=== PATIENT | male | born 1970 | race African-American/Black ===

== ENCOUNTER 2020-08-19 13:28 | Inpatient (IN) | payer OTHER ==
[2020-08-19 14:15] VITALS: BMI 29.9
[2020-08-19] MEDS ORDERED: chlordiazePOXIDE HCL 25 MG CAPSULE ONE (15:17)
[2020-08-19] MEDS: chlordiazePOXIDE HCL 25 MG CAPSULE PO PRN (15:30)
[2020-08-19] MEDS ORDERED: ONDANSETRON *ODT* 4 MG TABLET SL PRN (15:37)
[2020-08-19] MEDS ORDERED: MAGNESIUM HYDROX 2400MG/30ML ORAL SUSPENSION 30 ML CUP PO PRN (15:37)
[2020-08-19] MEDS ORDERED: ACETAMINOPHEN 325 MG TABLET (FP) PO PRN ×2 (15:37)
[2020-08-19] MEDS ORDERED: BISMUTH SUBSALICYLATE 262 MG/15 ML BTL PO PRN (15:37)
[2020-08-19] MEDS ORDERED: MAGNESIUM CITRATE 300 ML BOTTLE PO PRN (15:37)
[2020-08-19] MEDS ORDERED: NICOTINE POLACRILEX 2 MG GUM BUC PRN (15:37)
[2020-08-19] MEDS ORDERED: MAG HYDROX/AL HYDROX/SIMETH 30 ML UNIT-DOSE CUP PO PRN (15:37)
[2020-08-19] MEDS ORDERED: METHOCARBAMOL 500 MG TABLET PO PRN (15:37)
[2020-08-19] MEDS ORDERED: MENTHOL/PHENOL 1 EACH UD MM PRN (15:37)
[2020-08-20] MEDS: NICOTINE 21 MG/24 HOURS TOPICAL PATCH TD SCH ×2 (00:28→10:32)
[2020-08-20] MEDS: chlordiazePOXIDE HCL 25 MG CAPSULE PO SCH ×6 (00:29→22:09)
[2020-08-20] MEDS: hydrOXYzine PAMOATE 25 MG CAPSULE (FP) PO SCH ×7 (00:30→22:09)
[2020-08-20] MEDS: MELATONIN 5 MG TABLETS PO SCH ×2 (00:30→22:09)
[2020-08-20] MEDS: THIAMINE HCL 100 MG TABLET (FP) PO SCH ×2 (00:30→22:09)
[2020-08-20] MEDS: chlordiazePOXIDE HCL 25 MG CAPSULE PO PRN (00:44)
[2020-08-20] MEDS: CLINDAMYCIN HCL 150 MG CAPSULE (FP) PO SCH ×4 (10:32→22:09)
[2020-08-20] MEDS: PRENATAL VITAMINS W/ FOLIC ACID TABLET (FP) PO SCH (10:32)
[2020-08-20 12:14] LABS: HEMATOCRIT 31.6 % (35.4-49); HEMOGLOBIN 10.3 GM/dL (11.7-16.9); MCH 28.7 pg (25.7-33.7); MCHC 32.7 g/dl (32.0-35.9); MEAN CELL VOLUME 87.7 fl (80-96); MEAN PLT VOLUME 8.7 fl (7.5-11.1); PLATELET COUNT 412 K/MM3 (134-434); RBC 3.61 M/mm3 (4.00-5.60); RDW 16.8 % (11.9-15.9); WHITE BLOOD COUNT 5.7 K/mm3 (4.0-10.0)
[2020-08-20 12:29] LABS: ALBUMIN 3.3 g/dl (3.4-5.0); BLOOD UREA NITROGEN 9.8 mg/dL (7-18); CALCIUM 9.4 mg/dL (8.5-10.1)
[2020-08-20 12:33] LABS: CREATININE 0.9 mg/dL (0.55-1.3)
[2020-08-20 12:34] LABS: BILIRUBIN,TOTAL 0.5 mg/dL (0.2-1); TOT PROT 8.7 g/dl (6.4-8.2)
[2020-08-20] MEDS: FLUOCINONIDE 0.05% CREAM (60 GM TUBE) TP SCH ×2 (13:00→22:08)
[2020-08-20] MEDS: IBUPROFEN 400 MG TABLET (FP) PO PRN (18:04)
[2020-08-21] MEDS: hydrOXYzine PAMOATE 25 MG CAPSULE (FP) PO SCH ×2 (05:41→10:03)
[2020-08-21] MEDS: chlordiazePOXIDE HCL 25 MG CAPSULE PO SCH ×4 (05:42→22:03)
[2020-08-21] MEDS: IBUPROFEN 400 MG TABLET (FP) PO PRN (05:44)
[2020-08-21] MEDS: CLINDAMYCIN HCL 150 MG CAPSULE (FP) PO SCH ×4 (10:02→22:03)
[2020-08-21] MEDS: PRENATAL VITAMINS W/ FOLIC ACID TABLET (FP) PO SCH (10:03)
[2020-08-21] MEDS: NICOTINE 21 MG/24 HOURS TOPICAL PATCH TD SCH (10:03)
[2020-08-21] MEDS: FLUOCINONIDE 0.05% CREAM (60 GM TUBE) TP SCH ×2 (10:03→22:03)
[2020-08-21] MEDS: hydrOXYzine PAMOATE 25 MG CAPSULE (FP) PO PRN (17:42)
[2020-08-21] MEDS: IBUPROFEN 600 MG TABLET (FP) PO PRN (20:51)
[2020-08-21] MEDS: THIAMINE HCL 100 MG TABLET (FP) PO SCH (22:03)
[2020-08-21] MEDS: MELATONIN 5 MG TABLETS PO SCH (22:03)
[2020-08-22] MEDS ORDERED: chlordiazePOXIDE HCL 10 MG CAPSULE PO PRN
[2020-08-22] MEDS: chlordiazePOXIDE HCL 10 MG CAPSULE PO SCH ×4 (06:12→22:25)
[2020-08-22] MEDS: IBUPROFEN 600 MG TABLET (FP) PO PRN (09:32)
[2020-08-22] MEDS: PRENATAL VITAMINS W/ FOLIC ACID TABLET (FP) PO SCH (10:18)
[2020-08-22] MEDS: CLINDAMYCIN HCL 150 MG CAPSULE (FP) PO SCH ×4 (10:18→22:25)
[2020-08-22] MEDS ORDERED: IBUPROFEN 400 MG TABLET (FP) PO PRN (11:21)
[2020-08-22] MEDS ORDERED: FUROSEMIDE 40 MG TABLET (FP) PO ONE (11:23)
[2020-08-22] MEDS: NICOTINE 21 MG/24 HOURS TOPICAL PATCH TD SCH (11:23)
[2020-08-22] MEDS: FLUOCINONIDE 0.05% CREAM (60 GM TUBE) TP SCH (11:34)
[2020-08-22] MEDS: NYSTATIN/TRIAMCINOLONE TOPICAL OINTMENT 15 GM TUBE TP SCH ×2 (14:06→22:24)
[2020-08-22] MEDS: hydrOXYzine PAMOATE 25 MG CAPSULE (FP) PO PRN (17:27)
[2020-08-22] MEDS: THIAMINE HCL 100 MG TABLET (FP) PO SCH (22:25)
[2020-08-22] MEDS: MELATONIN 5 MG TABLETS PO SCH (22:25)
[2020-08-23] MEDS ORDERED: chlordiazePOXIDE HCL 10 MG CAPSULE PO SCH (05:00)
[2020-08-23 09:10] VITALS: BP 142/92; PULSE 80; TEMP 97.3
[2020-08-24] MEDS ORDERED: chlordiazePOXIDE HCL 10 MG CAPSULE PO ONE (05:00)
== END 2020-08-23 10:27 | disposition home or self-care (01) | DRG 774 ==
LOC: YASAS 13:28 → Y3N 15:11
PROVIDERS: ADMIT Allergy & Immunology; ATTEND Allergy & Immunology
PROC: HZ2ZZZZ Detoxification Services for Substance Abuse Treatment (ICD-10-PCS; principal; 2020-08-19)
DX: F10.230 Alcohol dependence with withdrawal, uncomplicated (principal); F14.20 Cocaine dependence, uncomplicated; F41.9 Anxiety disorder, unspecified; F32.9 Major depressive disorder, single episode, unspecified; I10 Essential (primary) hypertension; L03.115 Cellulitis of right lower limb; L03.116 Cellulitis of left lower limb; L85.3 Xerosis cutis; R20.0 Anesthesia of skin; R60.0 Localized edema; R19.5 Other fecal abnormalities; R26.2 Difficulty in walking, not elsewhere classified; Z99.89 Dependence on other enabling machines and devices
CPT/HCPCS: 36415; 80053; 82962; 85027; 86780; 93005; 93010; C9803; U0003

== ENCOUNTER 2020-08-19 16:17 | Emergency (ER) | payer OTHER ==
[2020-08-19 16:25] VITALS: BMI 29.9
[2020-08-19] MEDS ORDERED: chlordiazePOXIDE HCL 25 MG CAPSULE PO ONE (17:08)
[2020-08-19] MEDS ORDERED: chlordiazePOXIDE HCL 25 MG CAPSULE ONE (17:20)
[2020-08-19 17:45] LABS: BASO % 0.7 % (0-2.0); EOS % 0.1 % (0-4.5); HEMATOCRIT 29.5 % (35.4-49); HEMOGLOBIN 9.9 GM/dL (11.7-16.9); LYMPH % 16.3 % (8-40); MCH 28.7 pg (25.7-33.7); MCHC 33.6 g/dl (32.0-35.9); MEAN CELL VOLUME 85.4 fl (80-96); MEAN PLT VOLUME 8.5 fl (7.5-11.1); MONO % 23.2 % (3.8-10.2); NEUT % 59.7 % (42.8-82.8); PLATELET COUNT 386 K/MM3 (134-434); RBC 3.45 M/mm3 (4.00-5.60); RDW 16.5 % (11.9-15.9); WHITE BLOOD COUNT 7.5 K/mm3 (4.0-10.0)
[2020-08-19 17:59] LABS: INR 1.32 (0.83-1.09); PROTHROMBIN TIME (PATIENT) 16.1 SEC (9.7-13.0)
[2020-08-19 18:02] LABS: ACTIVATED PTT 36.1 SECONDS (25.2-36.5)
[2020-08-19 18:03] LABS: POTASSIUM 4.2 mmol/L (3.5-5.1)
[2020-08-19 18:05] LABS: ALBUMIN 3.5 g/dl (3.4-5.0); MAGNESIUM 2.1 mg/dL (1.8-2.4)
[2020-08-19 18:10] LABS: BILIRUBIN,TOTAL 0.4 mg/dL (0.2-1)
[2020-08-19] MEDS ORDERED: SODIUM CHLORIDE 1,000 ML IV STA (18:16)
[2020-08-19] MEDS ORDERED: THIAMINE HCL 100 MG TABLET (FP) PO ONE (18:22)
[2020-08-19] MEDS ORDERED: FOLIC ACID 1 MG TABLET (FP) PO ONE (18:22)
[2020-08-19] MEDS ORDERED: FOLIC ACID 1 MG TABLET (FP) ONE (18:26)
[2020-08-19] MEDS ORDERED: THIAMINE HCL 100 MG TABLET (FP) ONE (18:26)
[2020-08-19 18:32] LABS: BLOOD UREA NITROGEN 13.5 mg/dL (7-18)
[2020-08-19] MEDS ORDERED: CLINDAMYCIN IVPB 300 MG in DEXTROSE 5%-WATER - 48 ML IVPB ONE (19:42)
[2020-08-19 20:27] LABS: EPI CELLS 3 /uL (0-25.1); HYALINE CASTS 0 /uL (0-3.1); URINE APPEARANCE CLEAR; URINE BACTERIA 18 /uL (0-1359); URINE BILIRUBIN NEGATIVE (NEGATIVE); URINE COLOR YELLOW; URINE GLUCOSE (UA) NEGATIVE (NEGATIVE); URINE KETONE NEGATIVE (NEGATIVE); URINE LEUK ESTERASE NEGATIVE (NEGATIVE); URINE NITRITE NEGATIVE (NEGATIVE); URINE PROTEIN TRACE (NEGATIVE); URINE RBC 22 /uL (0-23.9); URINE WBC 6 /uL (0-25.8)
[2020-08-19 20:30] LABS: COCAINE, UR NEGATIVE ng/ml (CUTOFF=300)
[2020-08-19 20:31] LABS: OPIATES, URI NEGATIVE ng/ml (CUTOFF=300); PHENCYCLIDINE,URINE NEGATIVE ng/ml (CUTOFF=25)
[2020-08-19 20:31] LABS: N-TERMINAL BNP 18.7 pg/ml (5-125)
[2020-08-19 20:35] LABS: METHADONE, UR NEGATIVE ng/ml (CUTOFF=300); URINE AMPHETAMINES NEGATIVE ng/ml (CUTOFF=500); URINE BARBITURATES NEGATIVE ng/ml (CUTOFF=200)
[2020-08-19 20:43] LABS: URINE BENZODIAZEPINES POSITIVE ng/ml (CUTOFF=200)
[2020-08-19 21:35] VITALS: BP 147/82; PULSE 96; TEMP 99.2
== END 2020-08-19 23:42 | disposition home or self-care (01) ==
LOC: JER 16:17
PROC: 3E0337Z Introduction of Electrolytic and Water Balance Substance into Peripheral Vein, Percutaneous Approach (ICD-10-PCS; principal; 2020-08-19)
PROC: 3E033NZ Introduction of Analgesics, Hypnotics, Sedatives into Peripheral Vein, Percutaneous Approach (ICD-10-PCS; 2020-08-19)
DX: F10.20 Alcohol dependence, uncomplicated (principal); R42 Dizziness and giddiness; L03.115 Cellulitis of right lower limb; L03.116 Cellulitis of left lower limb
CPT/HCPCS: 36415; 71046-TC-FY; 80053; 80307; 81003; 82550; 82553; 83735; 83880; 84484; 85025; 85610; 85730; 93005; 93010; 93970-TC; 99285-25

== ENCOUNTER 2020-11-18 21:00 | Inpatient (IN) | payer OTHER ==
[2020-11-18 21:28] VITALS: BMI 28.6
[2020-11-18] MEDS ORDERED: ONDANSETRON *ODT* 4 MG TABLET SL PRN (21:58)
[2020-11-18] MEDS ORDERED: MAG HYDROX/AL HYDROX/SIMETH 30 ML UNIT-DOSE CUP PO PRN (21:58)
[2020-11-18] MEDS ORDERED: NICOTINE POLACRILEX 2 MG GUM BUC PRN (21:58)
[2020-11-18] MEDS ORDERED: IBUPROFEN 400 MG TABLET (FP) PO PRN (21:58)
[2020-11-18] MEDS ORDERED: MAGNESIUM CITRATE 300 ML BOTTLE PO PRN (21:58)
[2020-11-18] MEDS ORDERED: BISMUTH SUBSALICYLATE 524 MG/30 ML UD PO PRN (21:58)
[2020-11-18] MEDS ORDERED: MAGNESIUM HYDROX 2400MG/30ML ORAL SUSPENSION 30 ML CUP PO PRN (21:58)
[2020-11-18] MEDS ORDERED: chlordiazePOXIDE HCL 25 MG CAPSULE PO PRN (21:59)
[2020-11-18] MEDS ORDERED: METOPROLOL TARTRATE 25 MG TABLET (FP) PO ONE (21:59)
[2020-11-18] MEDS ORDERED: AMMONIUM LACTATE 12% LOTION 225 GM BOTTLE TP PRN (22:00)
[2020-11-18] MEDS ORDERED: MELATONIN 5 MG TABLETS PO SCH (22:00)
[2020-11-18] MEDS: chlordiazePOXIDE HCL 25 MG CAPSULE PO SCH (23:29)
[2020-11-18] MEDS: THIAMINE HCL 100 MG TABLET (FP) PO SCH (23:29)
[2020-11-19] MEDS: chlordiazePOXIDE HCL 25 MG CAPSULE PO SCH ×4 (06:20→22:24)
[2020-11-19] MEDS: PRENATAL VITAMINS W/ FOLIC ACID TABLET (FP) PO SCH (10:26)
[2020-11-19 11:08] LABS: HEMATOCRIT 30.5 % (35.4-49); MCH 28.3 pg (25.7-33.7); MEAN CELL VOLUME 85.7 fl (80-96); PLATELET COUNT 87 K/MM3 (134-434); RBC 3.55 M/mm3 (4.00-5.60); RDW 20.8 % (11.9-15.9); WHITE BLOOD COUNT 3.8 K/mm3 (4.0-10.0)
[2020-11-19 11:16] LABS: CALCIUM 8.9 mg/dL (8.5-10.1)
[2020-11-19 11:17] LABS: ALBUMIN 3.1 g/dl (3.4-5.0); BLOOD UREA NITROGEN 4.8 mg/dL (7-18)
[2020-11-19 11:20] LABS: CREATININE 1.1 mg/dL (0.55-1.3)
[2020-11-19 11:22] LABS: BILIRUBIN,TOTAL 0.4 mg/dL (0.2-1)
[2020-11-19] MEDS: THIAMINE HCL 100 MG TABLET (FP) PO SCH (22:24)
[2020-11-19] MEDS: SUVOREXANT 10 MG TABLET PO PRN (23:10)
[2020-11-20] MEDS: chlordiazePOXIDE HCL 25 MG CAPSULE PO SCH ×4 (05:03→22:32)
[2020-11-20] MEDS ORDERED: guaiFENesin 200 MG/10 ML 10 ML UNIT-DOSE CUPS PO PRN (09:15)
[2020-11-20] MEDS: PRENATAL VITAMINS W/ FOLIC ACID TABLET (FP) PO SCH (10:14)
[2020-11-20] MEDS: ACETAMINOPHEN 325 MG TABLET (FP) PO PRN ×2 (10:14→18:47)
[2020-11-20] MEDS ORDERED: POTASSIUM CHLORIDE ORAL LIQUID 20 MEQ/15 ML PO ONE (11:25)
[2020-11-20] MEDS: FERROUS SO4 325 MG TABLET (FP) PO SCH ×2 (12:33→22:31)
[2020-11-20] MEDS: METHOCARBAMOL 500 MG TABLET PO PRN ×2 (12:35→22:35)
[2020-11-20] MEDS: MENTHOL/PHENOL 1 EACH UD MM PRN ×2 (18:35→22:40)
[2020-11-20] MEDS: SUVOREXANT 10 MG TABLET PO PRN (22:30)
[2020-11-20] MEDS: THIAMINE HCL 100 MG TABLET (FP) PO SCH (22:31)
[2020-11-20] MEDS: POTASSIUM CHLORIDE ORAL LIQUID 20 MEQ/15 ML PO SCH (22:32)
[2020-11-21] MEDS ORDERED: chlordiazePOXIDE HCL 10 MG CAPSULE PO PRN
[2020-11-21] MEDS: chlordiazePOXIDE HCL 10 MG CAPSULE PO SCH ×4 (05:59→22:19)
[2020-11-21] MEDS: POTASSIUM CHLORIDE ORAL LIQUID 20 MEQ/15 ML PO SCH ×2 (10:11→22:17)
[2020-11-21] MEDS: PRENATAL VITAMINS W/ FOLIC ACID TABLET (FP) PO SCH (10:11)
[2020-11-21] MEDS: NAPROXEN 500 MG TABLET PO SCH ×2 (10:13→22:18)
[2020-11-21] MEDS: FERROUS SO4 325 MG TABLET (FP) PO SCH ×2 (10:13→22:17)
[2020-11-21] MEDS: FLUOCINONIDE 0.05% CREAM (60 GM TUBE) TP SCH ×4 (10:15→22:20)
[2020-11-21 10:21] LABS: SARS-CoV-2 NAA Not Detected (Not Detected)
[2020-11-21 11:05] LABS: HEMATOCRIT 33.7 % (35.4-49); HEMOGLOBIN 11.1 GM/dL (11.7-16.9); MCH 28.6 pg (25.7-33.7); MEAN CELL VOLUME 86.7 fl (80-96); PLATELET COUNT 126 K/MM3 (134-434); RBC 3.88 M/mm3 (4.00-5.60)
[2020-11-21 11:08] LABS: CALCIUM 9.5 mg/dL (8.5-10.1); INR 1.04 (0.83-1.09); PROTHROMBIN TIME (PATIENT) 12.8 SEC (9.7-13.0)
[2020-11-21 11:09] LABS: ALBUMIN 3.2 g/dl (3.4-5.0)
[2020-11-21 11:12] LABS: CREATININE 0.8 mg/dL (0.55-1.3)
[2020-11-21 11:13] LABS: BILIRUBIN,TOTAL 0.2 mg/dL (0.2-1); TOT PROT 7.3 g/dl (6.4-8.2)
[2020-11-21] MEDS: GABAPENTIN 100 MG CAPSULE PO SCH ×2 (14:10→22:17)
[2020-11-21] MEDS: MENTHOL/PHENOL 1 EACH UD MM PRN (17:47)
[2020-11-21] MEDS: SUVOREXANT 10 MG TABLET PO PRN (22:16)
[2020-11-21] MEDS: THIAMINE HCL 100 MG TABLET (FP) PO SCH (22:20)
[2020-11-22] MEDS: GABAPENTIN 100 MG CAPSULE PO SCH (05:50)
[2020-11-22] MEDS: chlordiazePOXIDE HCL 10 MG CAPSULE PO SCH ×2 (05:50→17:49)
[2020-11-22] MEDS: LACTULOSE 20 GM/30 ML UDC (FOR ORAL USE ONLY) PO SCH ×4 (10:14→22:27)
[2020-11-22] MEDS: PRENATAL VITAMINS W/ FOLIC ACID TABLET (FP) PO SCH (10:14)
[2020-11-22] MEDS: NAPROXEN 500 MG TABLET PO SCH ×2 (10:14→22:28)
[2020-11-22] MEDS: FLUOCINONIDE 0.05% CREAM (60 GM TUBE) TP SCH ×4 (10:14→22:28)
[2020-11-22] MEDS: FERROUS SO4 325 MG TABLET (FP) PO SCH ×2 (10:14→22:27)
[2020-11-22] MEDS: ACETAMINOPHEN 325 MG TABLET (FP) PO PRN ×2 (10:16→17:58)
[2020-11-22] MEDS: SUVOREXANT 10 MG TABLET PO PRN (21:00)
[2020-11-22] MEDS: THIAMINE HCL 100 MG TABLET (FP) PO SCH (22:27)
[2020-11-23] MEDS ORDERED: chlordiazePOXIDE HCL 10 MG CAPSULE PO ONE (05:00)
[2020-11-23] MEDS: ACETAMINOPHEN 325 MG TABLET (FP) PO PRN (05:54)
[2020-11-23] MEDS: LACTULOSE 20 GM/30 ML UDC (FOR ORAL USE ONLY) PO SCH ×4 (10:05→21:53)
[2020-11-23] MEDS: NAPROXEN 500 MG TABLET PO SCH ×2 (10:06→21:52)
[2020-11-23] MEDS: FLUOCINONIDE 0.05% CREAM (60 GM TUBE) TP SCH ×4 (10:06→21:53)
[2020-11-23] MEDS: FERROUS SO4 325 MG TABLET (FP) PO SCH ×2 (10:06→21:52)
[2020-11-23] MEDS: PRENATAL VITAMINS W/ FOLIC ACID TABLET (FP) PO SCH (10:06)
[2020-11-23] MEDS: MENTHOL/PHENOL 1 EACH UD MM PRN (17:56)
[2020-11-23] MEDS ORDERED: MASKS NR ONE (19:07)
[2020-11-23] MEDS: THIAMINE HCL 100 MG TABLET (FP) PO SCH (21:52)
[2020-11-23] MEDS: METHOCARBAMOL 500 MG TABLET PO PRN (23:02)
[2020-11-24] MEDS: PRENATAL VITAMINS W/ FOLIC ACID TABLET (FP) PO SCH (10:15)
[2020-11-24] MEDS: NAPROXEN 500 MG TABLET PO SCH ×2 (10:15→22:11)
[2020-11-24] MEDS: FERROUS SO4 325 MG TABLET (FP) PO SCH ×2 (10:15→22:11)
[2020-11-24] MEDS: FLUOCINONIDE 0.05% CREAM (60 GM TUBE) TP SCH ×4 (10:15→22:36)
[2020-11-24] MEDS: LACTULOSE 20 GM/30 ML UDC (FOR ORAL USE ONLY) PO SCH ×4 (10:17→22:11)
[2020-11-24] MEDS: amLODIPine BESYLATE 5 MG TABLET (FP) PO SCH (14:55)
[2020-11-24] MEDS: THIAMINE HCL 100 MG TABLET (FP) PO SCH (22:11)
[2020-11-25] MEDS ORDERED: FERROUS SO4 325 MG TABLET (FP) PO SCH (09:11)
[2020-11-25 09:34] VITALS: BP 134/73; PULSE 83; TEMP 97.3
[2020-11-25] MEDS: amLODIPine BESYLATE 5 MG TABLET (FP) PO SCH (10:19)
[2020-11-25] MEDS: LACTULOSE 20 GM/30 ML UDC (FOR ORAL USE ONLY) PO SCH (10:20)
[2020-11-25] MEDS: FLUOCINONIDE 0.05% CREAM (60 GM TUBE) TP SCH (10:20)
[2020-11-25] MEDS: NAPROXEN 500 MG TABLET PO SCH (10:20)
[2020-11-25] MEDS: PRENATAL VITAMINS W/ FOLIC ACID TABLET (FP) PO SCH (10:20)
== END 2020-11-25 13:08 | disposition other institution (70) | DRG 775 ==
LOC: YASAS 21:00 → Y3N 22:06
PROVIDERS: ADMIT Allergy & Immunology; ATTEND Allergy & Immunology
PROC: HZ2ZZZZ Detoxification Services for Substance Abuse Treatment (ICD-10-PCS; principal; 2020-11-18)
DX: F10.230 Alcohol dependence with withdrawal, uncomplicated (principal); F10.220 Alcohol dependence with intoxication, uncomplicated; F10.282 Alcohol dependence with alcohol-induced sleep disorder; D61.818 Other pancytopenia; E72.20 Disorder of urea cycle metabolism, unspecified; E88.09 Other disorders of plasma-protein metabolism, not elsewhere classified; E87.6 Hypokalemia; D64.9 Anemia, unspecified; I10 Essential (primary) hypertension; Z99.89 Dependence on other enabling machines and devices
CPT/HCPCS: 36415; 80053; 82140; 85027; 85610; 86780; C9803; Q0162; U0003; U0005

== ENCOUNTER 2020-11-25 13:23 | Inpatient (IN) | payer OTHER ==
[2020-11-25] MEDS ORDERED: LOPERAMIDE HCL 2 MG CAPSULE PO PRN (14:59)
[2020-11-25] MEDS ORDERED: P-EPHED 60MG/TRIPROLIDI 2.5MG TABLET PO PRN (14:59)
[2020-11-25] MEDS ORDERED: MAG HYDROX/AL HYDROX/SIMETH 30 ML UNIT-DOSE CUP PO PRN (14:59)
[2020-11-25] MEDS ORDERED: MENTHOL/PHENOL 1 EACH UD MM PRN (14:59)
[2020-11-25] MEDS ORDERED: MAGNESIUM HYDROX 2400MG/30ML ORAL SUSPENSION 30 ML CUP PO PRN (14:59)
[2020-11-25] MEDS ORDERED: NICOTINE POLACRILEX 2 MG GUM BUC PRN (14:59)
[2020-11-25] MEDS ORDERED: ACETAMINOPHEN 325 MG TABLET (FP) PO PRN (14:59)
[2020-11-25] MEDS ORDERED: MAGNESIUM CITRATE 300 ML BOTTLE PO PRN (14:59)
[2020-11-25] MEDS ORDERED: guaiFENesin 200 MG/10 ML 10 ML UNIT-DOSE CUPS PO PRN (14:59)
[2020-11-25] MEDS ORDERED: AMMONIUM LACTATE 12% LOTION 225 GM BOTTLE TP PRN (15:18)
[2020-11-25] MEDS ORDERED: PT OWN MED DRAWER 7, Y5N ONE ×2 (16:38→21:11)
[2020-11-25] MEDS: LACTULOSE 20 GM/30 ML UDC (FOR ORAL USE ONLY) PO SCH ×2 (17:24→21:12)
[2020-11-25] MEDS: FLUOCINONIDE 0.05% CREAM (60 GM TUBE) TP SCH ×2 (17:24→21:12)
[2020-11-25] MEDS: FERROUS SO4 325 MG TABLET (FP) PO SCH (17:24)
[2020-11-25] MEDS: MELATONIN 5 MG TABLETS PO SCH (21:12)
[2020-11-25] MEDS: THIAMINE HCL 100 MG TABLET (FP) PO SCH (21:12)
[2020-11-26] MEDS: FERROUS SO4 325 MG TABLET (FP) PO SCH ×2 (07:56→17:10)
[2020-11-26] MEDS: PRENATAL VITAMINS W/ FOLIC ACID TABLET (FP) PO SCH (09:46)
[2020-11-26] MEDS: LACTULOSE 20 GM/30 ML UDC (FOR ORAL USE ONLY) PO SCH ×4 (09:46→21:09)
[2020-11-26] MEDS: amLODIPine BESYLATE 5 MG TABLET (FP) PO SCH (09:47)
[2020-11-26] MEDS: FLUOCINONIDE 0.05% CREAM (60 GM TUBE) TP SCH ×4 (09:47→21:09)
[2020-11-26] MEDS: NICOTINE 7 MG/24 HOURS TOPICAL PATCH TD SCH (09:47)
[2020-11-26] MEDS ORDERED: PNEUMOCOCCAL 23 VACCINE 0.5 ML VIAL IM ONE (12:00)
[2020-11-26] MEDS ORDERED: PNEUMOC 13-VAL CONJ-DIP CRM/PF 0.5 ML DISP.SYRIN IM ONE (12:00)
[2020-11-26] MEDS ORDERED: PT OWN MED DRAWER 7, Y5N ONE ×2 (16:51→19:01)
[2020-11-26] MEDS: MELATONIN 5 MG TABLETS PO SCH (21:09)
[2020-11-26] MEDS: THIAMINE HCL 100 MG TABLET (FP) PO SCH (21:09)
[2020-11-27] MEDS: FERROUS SO4 325 MG TABLET (FP) PO SCH ×2 (07:33→17:29)
[2020-11-27] MEDS: amLODIPine BESYLATE 5 MG TABLET (FP) PO SCH (09:07)
[2020-11-27] MEDS: LACTULOSE 20 GM/30 ML UDC (FOR ORAL USE ONLY) PO SCH ×4 (09:07→21:51)
[2020-11-27] MEDS: FLUOCINONIDE 0.05% CREAM (60 GM TUBE) TP SCH ×4 (09:08→21:51)
[2020-11-27] MEDS: NICOTINE 7 MG/24 HOURS TOPICAL PATCH TD SCH (09:08)
[2020-11-27] MEDS: PRENATAL VITAMINS W/ FOLIC ACID TABLET (FP) PO SCH (09:08)
[2020-11-27] MEDS: IBUPROFEN 400 MG TABLET (FP) PO PRN (12:57)
[2020-11-27] MEDS ORDERED: PT OWN MED DRAWER 7, Y5N ONE (16:41)
[2020-11-27] MEDS: THIAMINE HCL 100 MG TABLET (FP) PO SCH (21:51)
[2020-11-27] MEDS: MELATONIN 5 MG TABLETS PO SCH (21:51)
[2020-11-27] MEDS: hydrOXYzine PAMOATE 25 MG CAPSULE (FP) PO PRN (21:52)
[2020-11-28] MEDS: FERROUS SO4 325 MG TABLET (FP) PO SCH ×2 (07:08→17:00)
[2020-11-28] MEDS: amLODIPine BESYLATE 5 MG TABLET (FP) PO SCH (09:38)
[2020-11-28] MEDS: LACTULOSE 20 GM/30 ML UDC (FOR ORAL USE ONLY) PO SCH ×4 (09:38→21:16)
[2020-11-28] MEDS: PRENATAL VITAMINS W/ FOLIC ACID TABLET (FP) PO SCH (09:38)
[2020-11-28] MEDS: FLUOCINONIDE 0.05% CREAM (60 GM TUBE) TP SCH ×4 (09:38→21:19)
[2020-11-28] MEDS: hydrOXYzine PAMOATE 25 MG CAPSULE (FP) PO PRN (16:49)
[2020-11-28] MEDS: IBUPROFEN 400 MG TABLET (FP) PO PRN (18:43)
[2020-11-28] MEDS: MELATONIN 5 MG TABLETS PO SCH (21:16)
[2020-11-28] MEDS: THIAMINE HCL 100 MG TABLET (FP) PO SCH (21:16)
[2020-11-29 04:07] LABS: SARS-CoV-2 NAA Not Detected (Not Detected)
[2020-11-29] MEDS: FERROUS SO4 325 MG TABLET (FP) PO SCH ×2 (07:23→17:32)
[2020-11-29] MEDS: amLODIPine BESYLATE 5 MG TABLET (FP) PO SCH (09:37)
[2020-11-29] MEDS: LACTULOSE 20 GM/30 ML UDC (FOR ORAL USE ONLY) PO SCH ×4 (09:37→21:24)
[2020-11-29] MEDS: PRENATAL VITAMINS W/ FOLIC ACID TABLET (FP) PO SCH (09:37)
[2020-11-29] MEDS: FLUOCINONIDE 0.05% CREAM (60 GM TUBE) TP SCH ×4 (09:37→21:24)
[2020-11-29] MEDS ORDERED: PT OWN MED DRAWER 7, Y5N ONE ×2 (16:49→19:43)
[2020-11-29] MEDS: MELATONIN 5 MG TABLETS PO SCH (21:24)
[2020-11-29] MEDS: THIAMINE HCL 100 MG TABLET (FP) PO SCH (21:24)
[2020-11-30] MEDS: FERROUS SO4 325 MG TABLET (FP) PO SCH ×2 (07:00→16:53)
[2020-11-30] MEDS: LACTULOSE 20 GM/30 ML UDC (FOR ORAL USE ONLY) PO SCH ×4 (10:00→21:43)
[2020-11-30] MEDS: amLODIPine BESYLATE 5 MG TABLET (FP) PO SCH (10:01)
[2020-11-30] MEDS: FLUOCINONIDE 0.05% CREAM (60 GM TUBE) TP SCH ×4 (10:01→21:43)
[2020-11-30] MEDS: PRENATAL VITAMINS W/ FOLIC ACID TABLET (FP) PO SCH (10:01)
[2020-11-30] MEDS ORDERED: PT OWN MED DRAWER 7, Y5N ONE (16:46)
[2020-11-30] MEDS: THIAMINE HCL 100 MG TABLET (FP) PO SCH (21:43)
[2020-11-30] MEDS: MELATONIN 5 MG TABLETS PO SCH (21:43)
[2020-12-01] MEDS: FERROUS SO4 325 MG TABLET (FP) PO SCH ×2 (07:05→17:28)
[2020-12-01] MEDS: LACTULOSE 20 GM/30 ML UDC (FOR ORAL USE ONLY) PO SCH ×4 (10:15→21:07)
[2020-12-01] MEDS: PRENATAL VITAMINS W/ FOLIC ACID TABLET (FP) PO SCH (10:15)
[2020-12-01] MEDS: amLODIPine BESYLATE 5 MG TABLET (FP) PO SCH (10:15)
[2020-12-01] MEDS: FLUOCINONIDE 0.05% CREAM (60 GM TUBE) TP SCH ×4 (10:16→21:07)
[2020-12-01] MEDS ORDERED: PT OWN MED DRAWER 7, Y5N ONE ×2 (16:56→19:25)
[2020-12-01] MEDS: IBUPROFEN 400 MG TABLET (FP) PO PRN (18:40)
[2020-12-01] MEDS: THIAMINE HCL 100 MG TABLET (FP) PO SCH (21:07)
[2020-12-01] MEDS: MELATONIN 5 MG TABLETS PO SCH (21:07)
[2020-12-02] MEDS: FERROUS SO4 325 MG TABLET (FP) PO SCH ×2 (07:41→17:49)
[2020-12-02] MEDS: PRENATAL VITAMINS W/ FOLIC ACID TABLET (FP) PO SCH (09:29)
[2020-12-02] MEDS: FLUOCINONIDE 0.05% CREAM (60 GM TUBE) TP SCH ×4 (09:30→21:56)
[2020-12-02] MEDS: LACTULOSE 20 GM/30 ML UDC (FOR ORAL USE ONLY) PO SCH ×4 (09:30→21:56)
[2020-12-02] MEDS: amLODIPine BESYLATE 5 MG TABLET (FP) PO SCH (09:30)
[2020-12-02] MEDS: MELATONIN 5 MG TABLETS PO SCH (21:56)
[2020-12-02] MEDS: THIAMINE HCL 100 MG TABLET (FP) PO SCH (21:56)
[2020-12-03] MEDS ORDERED: MASKS NR ONE (00:24)
[2020-12-03] MEDS: FERROUS SO4 325 MG TABLET (FP) PO SCH ×2 (07:40→17:18)
[2020-12-03] MEDS: LACTULOSE 20 GM/30 ML UDC (FOR ORAL USE ONLY) PO SCH ×4 (09:35→21:10)
[2020-12-03] MEDS: amLODIPine BESYLATE 5 MG TABLET (FP) PO SCH (09:35)
[2020-12-03] MEDS: PRENATAL VITAMINS W/ FOLIC ACID TABLET (FP) PO SCH (09:35)
[2020-12-03] MEDS: FLUOCINONIDE 0.05% CREAM (60 GM TUBE) TP SCH ×4 (09:36→21:11)
[2020-12-03] MEDS: IBUPROFEN 400 MG TABLET (FP) PO PRN (09:40)
[2020-12-03] MEDS ORDERED: PT OWN MED DRAWER 7, Y5N ONE ×3 (13:09→19:06)
[2020-12-03] MEDS: THIAMINE HCL 100 MG TABLET (FP) PO SCH (21:10)
[2020-12-03] MEDS: MELATONIN 5 MG TABLETS PO SCH (21:10)
[2020-12-03] MEDS ORDERED: ARIPiprazole 2 MG TABLET PO SCH (22:00)
[2020-12-04] MEDS: FERROUS SO4 325 MG TABLET (FP) PO SCH ×2 (07:10→17:39)
[2020-12-04] MEDS: PRENATAL VITAMINS W/ FOLIC ACID TABLET (FP) PO SCH (09:28)
[2020-12-04] MEDS: LACTULOSE 20 GM/30 ML UDC (FOR ORAL USE ONLY) PO SCH ×4 (09:29→21:57)
[2020-12-04] MEDS: FLUOCINONIDE 0.05% CREAM (60 GM TUBE) TP SCH ×4 (09:29→21:56)
[2020-12-04] MEDS: amLODIPine BESYLATE 5 MG TABLET (FP) PO SCH (09:29)
[2020-12-04] MEDS: ARIPiprazole 2 MG TABLET PO SCH (14:48)
[2020-12-04] MEDS ORDERED: PT OWN MED DRAWER 7, Y5N ONE (16:55)
[2020-12-04] MEDS: IBUPROFEN 400 MG TABLET (FP) PO PRN (19:19)
[2020-12-04] MEDS: MELATONIN 5 MG TABLETS PO PRN (21:57)
[2020-12-04] MEDS: THIAMINE HCL 100 MG TABLET (FP) PO SCH (21:58)
[2020-12-05] MEDS: FERROUS SO4 325 MG TABLET (FP) PO SCH ×2 (07:22→17:23)
[2020-12-05] MEDS: PRENATAL VITAMINS W/ FOLIC ACID TABLET (FP) PO SCH (09:34)
[2020-12-05] MEDS: amLODIPine BESYLATE 5 MG TABLET (FP) PO SCH (09:34)
[2020-12-05] MEDS: ARIPiprazole 2 MG TABLET PO SCH (09:35)
[2020-12-05] MEDS: LACTULOSE 20 GM/30 ML UDC (FOR ORAL USE ONLY) PO SCH ×4 (09:35→21:14)
[2020-12-05] MEDS: FLUOCINONIDE 0.05% CREAM (60 GM TUBE) TP SCH ×4 (09:36→21:14)
[2020-12-05] MEDS: IBUPROFEN 400 MG TABLET (FP) PO PRN (20:26)
[2020-12-05] MEDS: MELATONIN 5 MG TABLETS PO PRN (21:14)
[2020-12-05] MEDS: THIAMINE HCL 100 MG TABLET (FP) PO SCH (21:14)
[2020-12-06] MEDS: FERROUS SO4 325 MG TABLET (FP) PO SCH ×2 (07:11→17:29)
[2020-12-06] MEDS: LACTULOSE 20 GM/30 ML UDC (FOR ORAL USE ONLY) PO SCH ×4 (09:37→22:04)
[2020-12-06] MEDS: amLODIPine BESYLATE 5 MG TABLET (FP) PO SCH (09:38)
[2020-12-06] MEDS: ARIPiprazole 2 MG TABLET PO SCH (09:38)
[2020-12-06] MEDS: FLUOCINONIDE 0.05% CREAM (60 GM TUBE) TP SCH ×4 (09:39→22:04)
[2020-12-06] MEDS: PRENATAL VITAMINS W/ FOLIC ACID TABLET (FP) PO SCH (09:40)
[2020-12-06] MEDS: THIAMINE HCL 100 MG TABLET (FP) PO SCH (22:04)
[2020-12-06] MEDS: MELATONIN 5 MG TABLETS PO PRN (22:04)
[2020-12-06] MEDS ORDERED: PT OWN MED DRAWER 7, Y5N ONE (22:04)
[2020-12-07] MEDS: FERROUS SO4 325 MG TABLET (FP) PO SCH ×2 (07:44→18:03)
[2020-12-07] MEDS: PRENATAL VITAMINS W/ FOLIC ACID TABLET (FP) PO SCH (09:32)
[2020-12-07] MEDS ORDERED: PT OWN MED DRAWER 7, Y5N ONE (09:33)
[2020-12-07] MEDS: LACTULOSE 20 GM/30 ML UDC (FOR ORAL USE ONLY) PO SCH ×4 (09:34→22:17)
[2020-12-07] MEDS: FLUOCINONIDE 0.05% CREAM (60 GM TUBE) TP SCH ×4 (09:34→22:17)
[2020-12-07] MEDS: amLODIPine BESYLATE 5 MG TABLET (FP) PO SCH (09:34)
[2020-12-07] MEDS: ARIPiprazole 5 MG TABLET PO SCH (11:12)
[2020-12-07] MEDS: IBUPROFEN 400 MG TABLET (FP) PO PRN (20:12)
[2020-12-07] MEDS: THIAMINE HCL 100 MG TABLET (FP) PO SCH (22:17)
[2020-12-07] MEDS: MELATONIN 5 MG TABLETS PO PRN (22:17)
[2020-12-08] MEDS: FERROUS SO4 325 MG TABLET (FP) PO SCH ×2 (07:11→17:33)
[2020-12-08] MEDS ORDERED: PT OWN MED DRAWER 7, Y5N ONE ×4 (08:07→19:03)
[2020-12-08] MEDS: LACTULOSE 20 GM/30 ML UDC (FOR ORAL USE ONLY) PO SCH ×4 (09:14→21:00)
[2020-12-08] MEDS: PRENATAL VITAMINS W/ FOLIC ACID TABLET (FP) PO SCH (09:14)
[2020-12-08] MEDS: ARIPiprazole 5 MG TABLET PO SCH (09:14)
[2020-12-08] MEDS: amLODIPine BESYLATE 5 MG TABLET (FP) PO SCH (09:14)
[2020-12-08] MEDS: FLUOCINONIDE 0.05% CREAM (60 GM TUBE) TP SCH ×4 (09:14→21:11)
[2020-12-08] MEDS: THIAMINE HCL 100 MG TABLET (FP) PO SCH (21:00)
[2020-12-08] MEDS: MELATONIN 5 MG TABLETS PO PRN (21:01)
[2020-12-09 07:00] VITALS: BP 137/82; PULSE 84; TEMP 97.6
[2020-12-09] MEDS: FERROUS SO4 325 MG TABLET (FP) PO SCH (07:49)
[2020-12-09] MEDS: ARIPiprazole 5 MG TABLET PO SCH (10:14)
[2020-12-09] MEDS: LACTULOSE 20 GM/30 ML UDC (FOR ORAL USE ONLY) PO SCH (10:14)
[2020-12-09] MEDS: PRENATAL VITAMINS W/ FOLIC ACID TABLET (FP) PO SCH (10:14)
[2020-12-09] MEDS: amLODIPine BESYLATE 5 MG TABLET (FP) PO SCH (10:14)
[2020-12-09] MEDS: FLUOCINONIDE 0.05% CREAM (60 GM TUBE) TP SCH (10:15)
== END 2020-12-09 10:30 | disposition home or self-care (01) | DRG 772 ==
LOC: YASAS 13:23 → Y5N 13:24
PROVIDERS: ADMIT Allergy & Immunology; ATTEND Allergy & Immunology
PROC: HZ42ZZZ Group Counseling for Substance Abuse Treatment, Cognitive-Behavioral (ICD-10-PCS; principal; 2020-11-25)
DX: F10.20 Alcohol dependence, uncomplicated (principal); F10.282 Alcohol dependence with alcohol-induced sleep disorder; F10.24 Alcohol dependence with alcohol-induced mood disorder; F39 Unspecified mood [affective] disorder; F32.9 Major depressive disorder, single episode, unspecified; F31.9 Bipolar disorder, unspecified; E72.20 Disorder of urea cycle metabolism, unspecified; E87.6 Hypokalemia; D50.9 Iron deficiency anemia, unspecified; I10 Essential (primary) hypertension; G40.909 Epilepsy, unspecified, not intractable, without status epilepticus; L03.90 Cellulitis, unspecified; Z99.89 Dependence on other enabling machines and devices; Z56.0 Unemployment, unspecified; Z59.0 Homelessness
CPT/HCPCS: 82140; C9803; U0003; U0005

== ENCOUNTER 2021-10-20 18:49 | Inpatient (IN) | payer OTHER ==
[2021-10-20] MEDS ORDERED: LOPERAMIDE HCL 2 MG CAPSULE PO PRN (21:26)
[2021-10-20] MEDS ORDERED: chlordiazePOXIDE HCL 25 MG CAPSULE PO PRN (21:26)
[2021-10-20] MEDS ORDERED: IBUPROFEN 400 MG TABLET (FP) PO PRN (21:26)
[2021-10-20] MEDS ORDERED: MAGNESIUM CITRATE 300 ML BOTTLE PO PRN (21:26)
[2021-10-20] MEDS ORDERED: MAGNESIUM HYDROX 2400MG/30ML ORAL SUSPENSION 30 ML CUP PO PRN (21:26)
[2021-10-20] MEDS ORDERED: ACETAMINOPHEN 325 MG TABLET (FP) PO PRN ×2 (21:26)
[2021-10-20] MEDS ORDERED: MAG HYDROX/AL HYDROX/SIMETH 30 ML UNIT-DOSE CUP PO PRN (21:26)
[2021-10-20] MEDS ORDERED: ONDANSETRON *ODT* 4 MG TABLET SL PRN (21:26)
[2021-10-20] MEDS ORDERED: BISMUTH SUBSALICYLATE 524 MG/30 ML PO PRN (21:26)
[2021-10-20 21:52] VITALS: BMI 28.8
[2021-10-20] MEDS ORDERED: CLOTRIMAZOLE/BETAMET DIPROP TOPICAL CREAM 45 GM TUBE TP SCH (22:00)
[2021-10-20] MEDS: METHOCARBAMOL 500 MG TABLET PO PRN (23:06)
[2021-10-20] MEDS: MELATONIN 5 MG TABLETS PO SCH (23:06)
[2021-10-20] MEDS: chlordiazePOXIDE HCL 25 MG CAPSULE PO SCH (23:06)
[2021-10-20] MEDS: THIAMINE HCL 100 MG TABLET (FP) PO SCH (23:06)
[2021-10-21] MEDS: CLOTRIMAZOLE/BETAMET DIPROP TOPICAL CREAM 45 GM TUBE TP SCH ×3 (00:18→22:49)
[2021-10-21] MEDS: chlordiazePOXIDE HCL 25 MG CAPSULE PO SCH ×4 (05:32→22:46)
[2021-10-21 09:52] LABS: MCH 27.8 pg (25.7-33.7); MCHC 33.4 g/dl (32.0-35.9); MEAN CELL VOLUME 83.4 fl (80-96); MEAN PLT VOLUME 9.7 fl (7.5-11.1); PLATELET COUNT 107 10^3/uL (134-434); RBC 4.31 M/mm3 (4.00-5.60); RDW 20.8 % (11.9-15.9); WHITE BLOOD COUNT 3.5 K/mm3 (4.0-10.0)
[2021-10-21 10:04] LABS: CREATININE 1.1 mg/dL (0.55-1.3)
[2021-10-21 10:05] LABS: CALCIUM 9.3 mg/dL (8.5-10.1)
[2021-10-21 10:06] LABS: BILIRUBIN,TOTAL 1.4 mg/dL (0.2-1); TOT PROT 8.4 g/dl (6.4-8.2)
[2021-10-21 10:08] LABS: BLOOD UREA NITROGEN 7.2 mg/dL (7-18)
[2021-10-21] MEDS: PRENATAL VITAMINS W/ FOLIC ACID TABLET (FP) PO SCH (10:19)
[2021-10-21] MEDS: METHOCARBAMOL 500 MG TABLET PO PRN (22:46)
[2021-10-21] MEDS: MELATONIN 5 MG TABLETS PO SCH (22:46)
[2021-10-21] MEDS: THIAMINE HCL 100 MG TABLET (FP) PO SCH (22:46)
[2021-10-22] MEDS: chlordiazePOXIDE HCL 25 MG CAPSULE PO SCH ×4 (07:03→22:57)
[2021-10-22 08:08] LABS: SARS-CoV-2 NAA Not Detected (Not Detected)
[2021-10-22] MEDS: hydrOXYzine PAMOATE 25 MG CAPSULE (FP) PO PRN ×3 (10:06→22:57)
[2021-10-22] MEDS: PRENATAL VITAMINS W/ FOLIC ACID TABLET (FP) PO SCH (10:07)
[2021-10-22] MEDS: CLOTRIMAZOLE/BETAMET DIPROP TOPICAL CREAM 45 GM TUBE TP SCH ×2 (10:07→23:00)
[2021-10-22] MEDS ORDERED: POTASSIUM CHLORIDE TABS 20 MEQ TABLET.ER (FP) PO ONE (10:45)
[2021-10-22] MEDS: MENTHOL/PHENOL 1 EACH UD MM PRN (20:56)
[2021-10-22] MEDS: METHOCARBAMOL 500 MG TABLET PO PRN (22:57)
[2021-10-22] MEDS: THIAMINE HCL 100 MG TABLET (FP) PO SCH (22:57)
[2021-10-22] MEDS: MELATONIN 5 MG TABLETS PO SCH (22:58)
[2021-10-23] MEDS ORDERED: chlordiazePOXIDE HCL 10 MG CAPSULE PO PRN
[2021-10-23] MEDS: chlordiazePOXIDE HCL 10 MG CAPSULE PO SCH ×4 (06:25→22:47)
[2021-10-23] MEDS: PRENATAL VITAMINS W/ FOLIC ACID TABLET (FP) PO SCH (11:07)
[2021-10-23] MEDS: hydrOXYzine PAMOATE 25 MG CAPSULE (FP) PO PRN ×3 (11:08→22:46)
[2021-10-23] MEDS: CLOTRIMAZOLE/BETAMET DIPROP TOPICAL CREAM 45 GM TUBE TP SCH ×2 (11:32→22:46)
[2021-10-23] MEDS: MENTHOL/PHENOL 1 EACH UD MM PRN (16:10)
[2021-10-23] MEDS ORDERED: POTASSIUM CHLORIDE TABS 20 MEQ TABLET.ER (FP) PO ONE (17:24)
[2021-10-23] MEDS: METHOCARBAMOL 500 MG TABLET PO PRN (18:54)
[2021-10-23] MEDS: MELATONIN 5 MG TABLETS PO SCH (22:46)
[2021-10-23] MEDS: THIAMINE HCL 100 MG TABLET (FP) PO SCH (22:47)
[2021-10-24] MEDS ORDERED: POTASSIUM CHLORIDE ORAL LIQUID 20 MEQ/15 ML PO SCH (10:00)
[2021-10-24] MEDS: chlordiazePOXIDE HCL 10 MG CAPSULE PO SCH ×2 (10:12→18:18)
[2021-10-24] MEDS: METHOCARBAMOL 500 MG TABLET PO PRN ×2 (11:03→23:06)
[2021-10-24] MEDS: PRENATAL VITAMINS W/ FOLIC ACID TABLET (FP) PO SCH (11:03)
[2021-10-24] MEDS: CLOTRIMAZOLE/BETAMET DIPROP TOPICAL CREAM 45 GM TUBE TP SCH ×2 (11:04→23:07)
[2021-10-24] MEDS: hydrOXYzine PAMOATE 25 MG CAPSULE (FP) PO PRN ×3 (12:59→23:06)
[2021-10-24] MEDS: MELATONIN 5 MG TABLETS PO SCH (23:06)
[2021-10-24] MEDS: THIAMINE HCL 100 MG TABLET (FP) PO SCH (23:07)
[2021-10-25] MEDS ORDERED: chlordiazePOXIDE HCL 10 MG CAPSULE PO ONE (05:00)
[2021-10-25 13:27] VITALS: BP 151/82; PULSE 88; TEMP 97.8
[2021-10-25] MEDS: PRENATAL VITAMINS W/ FOLIC ACID TABLET (FP) PO SCH (13:36)
[2021-10-25] MEDS: CLOTRIMAZOLE/BETAMET DIPROP TOPICAL CREAM 45 GM TUBE TP SCH (13:36)
== END 2021-10-25 15:07 | disposition other institution (70) | DRG 775 ==
LOC: YASAS 18:49 → Y6N 22:37
PROVIDERS: ADMIT Allergy & Immunology; ATTEND Allergy & Immunology
PROC: HZ2ZZZZ Detoxification Services for Substance Abuse Treatment (ICD-10-PCS; principal; 2021-10-20)
DX: F10.230 Alcohol dependence with withdrawal, uncomplicated (principal); F10.282 Alcohol dependence with alcohol-induced sleep disorder; F10.280 Alcohol dependence with alcohol-induced anxiety disorder; F10.24 Alcohol dependence with alcohol-induced mood disorder; F41.9 Anxiety disorder, unspecified; F32.A Depression, unspecified; D50.9 Iron deficiency anemia, unspecified; D72.819 Decreased white blood cell count, unspecified; D69.6 Thrombocytopenia, unspecified; E87.6 Hypokalemia; R56.9 Unspecified convulsions; Z56.0 Unemployment, unspecified; Z59.00 Homelessness unspecified
CPT/HCPCS: 36415; 80053; 84132; 85027; 86780; 87811; 93005; 93010; C9803-CS; Q0162; U0003; U0005

== ENCOUNTER 2021-10-25 15:23 | Inpatient (IN) | payer OTHER ==
[2021-10-25] MEDS ORDERED: ACETAMINOPHEN 325 MG TABLET (FP) PO PRN (16:33)
[2021-10-25] MEDS ORDERED: guaiFENesin 200 MG/10 ML 10 ML UNIT-DOSE CUPS PO PRN (16:33)
[2021-10-25] MEDS ORDERED: MENTHOL/PHENOL 1 EACH UD MM PRN (16:33)
[2021-10-25] MEDS ORDERED: LOPERAMIDE HCL 2 MG CAPSULE PO PRN (16:33)
[2021-10-25] MEDS ORDERED: MAGNESIUM HYDROX 2400MG/30ML ORAL SUSPENSION 30 ML CUP PO PRN (16:33)
[2021-10-25] MEDS ORDERED: MAGNESIUM CITRATE 300 ML BOTTLE PO PRN (16:33)
[2021-10-25] MEDS ORDERED: MAG HYDROX/AL HYDROX/SIMETH 30 ML UNIT-DOSE CUP PO PRN (16:33)
[2021-10-25] MEDS: MELATONIN 5 MG TABLETS PO SCH (21:19)
[2021-10-25] MEDS: CLOTRIMAZOLE/BETAMET DIPROP TOPICAL CREAM 45 GM TUBE TP SCH (21:19)
[2021-10-25] MEDS: THIAMINE HCL 100 MG TABLET (FP) PO SCH (21:19)
[2021-10-26] MEDS: PRENATAL VITAMINS W/ FOLIC ACID TABLET (FP) PO SCH (09:47)
[2021-10-26] MEDS: CLOTRIMAZOLE/BETAMET DIPROP TOPICAL CREAM 45 GM TUBE TP SCH ×2 (09:49→21:43)
[2021-10-26] MEDS: THIAMINE HCL 100 MG TABLET (FP) PO SCH (21:44)
[2021-10-26] MEDS: MELATONIN 5 MG TABLETS PO SCH (21:44)
[2021-10-27] MEDS: CLOTRIMAZOLE/BETAMET DIPROP TOPICAL CREAM 45 GM TUBE TP SCH ×2 (10:09→21:48)
[2021-10-27] MEDS: PRENATAL VITAMINS W/ FOLIC ACID TABLET (FP) PO SCH (10:09)
[2021-10-27] MEDS: THIAMINE HCL 100 MG TABLET (FP) PO SCH (21:48)
[2021-10-27] MEDS: MELATONIN 5 MG TABLETS PO SCH (21:48)
[2021-10-28 06:09] LABS: SARS-CoV-2 NAA Not Detected (Not Detected)
[2021-10-28] MEDS: PRENATAL VITAMINS W/ FOLIC ACID TABLET (FP) PO SCH (10:20)
[2021-10-28] MEDS: CLOTRIMAZOLE/BETAMET DIPROP TOPICAL CREAM 45 GM TUBE TP SCH ×2 (10:20→21:36)
[2021-10-28] MEDS: IBUPROFEN 400 MG TABLET (FP) PO PRN (13:40)
[2021-10-28] MEDS: MELATONIN 5 MG TABLETS PO SCH (21:34)
[2021-10-28] MEDS: THIAMINE HCL 100 MG TABLET (FP) PO SCH (21:34)
[2021-10-29] MEDS: PRENATAL VITAMINS W/ FOLIC ACID TABLET (FP) PO SCH (10:12)
[2021-10-29] MEDS: CLOTRIMAZOLE/BETAMET DIPROP TOPICAL CREAM 45 GM TUBE TP SCH ×2 (10:12→21:44)
[2021-10-29] MEDS: MELATONIN 5 MG TABLETS PO SCH (21:45)
[2021-10-29] MEDS: THIAMINE HCL 100 MG TABLET (FP) PO SCH (21:45)
[2021-10-30] MEDS: PRENATAL VITAMINS W/ FOLIC ACID TABLET (FP) PO SCH (10:28)
[2021-10-30] MEDS: CLOTRIMAZOLE/BETAMET DIPROP TOPICAL CREAM 45 GM TUBE TP SCH ×2 (10:30→21:43)
[2021-10-30] MEDS: hydrOXYzine PAMOATE 25 MG CAPSULE (FP) PO PRN ×2 (14:30→21:43)
[2021-10-30] MEDS: THIAMINE HCL 100 MG TABLET (FP) PO SCH (21:43)
[2021-10-30] MEDS: MELATONIN 5 MG TABLETS PO SCH (21:44)
[2021-10-31] MEDS: hydrOXYzine PAMOATE 25 MG CAPSULE (FP) PO PRN (06:27)
[2021-10-31] MEDS: CLOTRIMAZOLE/BETAMET DIPROP TOPICAL CREAM 45 GM TUBE TP SCH ×2 (10:03→21:27)
[2021-10-31] MEDS: PRENATAL VITAMINS W/ FOLIC ACID TABLET (FP) PO SCH (10:03)
[2021-10-31] MEDS: MELATONIN 5 MG TABLETS PO SCH (21:27)
[2021-10-31] MEDS: THIAMINE HCL 100 MG TABLET (FP) PO SCH (21:27)
[2021-11-01] MEDS: CLOTRIMAZOLE/BETAMET DIPROP TOPICAL CREAM 45 GM TUBE TP SCH ×2 (10:27→21:19)
[2021-11-01] MEDS: PRENATAL VITAMINS W/ FOLIC ACID TABLET (FP) PO SCH (10:27)
[2021-11-01] MEDS: THIAMINE HCL 100 MG TABLET (FP) PO SCH (21:17)
[2021-11-01] MEDS: hydrOXYzine PAMOATE 25 MG CAPSULE (FP) PO PRN (21:17)
[2021-11-01] MEDS: MELATONIN 5 MG TABLETS PO SCH (21:17)
[2021-11-02] MEDS: PRENATAL VITAMINS W/ FOLIC ACID TABLET (FP) PO SCH (10:03)
[2021-11-02] MEDS: CLOTRIMAZOLE/BETAMET DIPROP TOPICAL CREAM 45 GM TUBE TP SCH ×2 (10:04→21:59)
[2021-11-02] MEDS: hydrOXYzine PAMOATE 25 MG CAPSULE (FP) PO PRN ×2 (10:04→21:58)
[2021-11-02] MEDS: MELATONIN 5 MG TABLETS PO SCH (21:57)
[2021-11-02] MEDS: THIAMINE HCL 100 MG TABLET (FP) PO SCH (21:57)
[2021-11-03] MEDS: PRENATAL VITAMINS W/ FOLIC ACID TABLET (FP) PO SCH (10:05)
[2021-11-03] MEDS: CLOTRIMAZOLE/BETAMET DIPROP TOPICAL CREAM 45 GM TUBE TP SCH ×2 (11:00→21:14)
[2021-11-03] MEDS: THIAMINE HCL 100 MG TABLET (FP) PO SCH (21:15)
[2021-11-03] MEDS: MELATONIN 5 MG TABLETS PO SCH (21:15)
[2021-11-03] MEDS: hydrOXYzine PAMOATE 25 MG CAPSULE (FP) PO PRN (21:15)
[2021-11-04] MEDS: PRENATAL VITAMINS W/ FOLIC ACID TABLET (FP) PO SCH (10:02)
[2021-11-04] MEDS: CLOTRIMAZOLE/BETAMET DIPROP TOPICAL CREAM 45 GM TUBE TP SCH ×2 (10:02→21:29)
[2021-11-04] MEDS: hydrOXYzine PAMOATE 25 MG CAPSULE (FP) PO PRN (10:03)
[2021-11-04] MEDS: MELATONIN 5 MG TABLETS PO SCH (21:29)
[2021-11-04] MEDS: THIAMINE HCL 100 MG TABLET (FP) PO SCH (21:29)
[2021-11-05] MEDS: CLOTRIMAZOLE/BETAMET DIPROP TOPICAL CREAM 45 GM TUBE TP SCH ×2 (10:03→21:35)
[2021-11-05] MEDS: PRENATAL VITAMINS W/ FOLIC ACID TABLET (FP) PO SCH (10:03)
[2021-11-05] MEDS: MELATONIN 5 MG TABLETS PO SCH (21:35)
[2021-11-05] MEDS: THIAMINE HCL 100 MG TABLET (FP) PO SCH (21:35)
[2021-11-05] MEDS: hydrOXYzine PAMOATE 25 MG CAPSULE (FP) PO PRN (21:35)
[2021-11-06] MEDS: CLOTRIMAZOLE/BETAMET DIPROP TOPICAL CREAM 45 GM TUBE TP SCH ×2 (10:19→21:37)
[2021-11-06] MEDS: PRENATAL VITAMINS W/ FOLIC ACID TABLET (FP) PO SCH (10:19)
[2021-11-06] MEDS: THIAMINE HCL 100 MG TABLET (FP) PO SCH (21:36)
[2021-11-06] MEDS: MELATONIN 5 MG TABLETS PO SCH (21:36)
[2021-11-06] MEDS: hydrOXYzine PAMOATE 25 MG CAPSULE (FP) PO PRN (21:37)
[2021-11-07] MEDS: PRENATAL VITAMINS W/ FOLIC ACID TABLET (FP) PO SCH (10:03)
[2021-11-07] MEDS: CLOTRIMAZOLE/BETAMET DIPROP TOPICAL CREAM 45 GM TUBE TP SCH ×2 (10:04→21:25)
[2021-11-07] MEDS: THIAMINE HCL 100 MG TABLET (FP) PO SCH (21:23)
[2021-11-07] MEDS: MELATONIN 5 MG TABLETS PO SCH (21:23)
[2021-11-07] MEDS: hydrOXYzine PAMOATE 25 MG CAPSULE (FP) PO PRN (21:24)
[2021-11-08] MEDS: PRENATAL VITAMINS W/ FOLIC ACID TABLET (FP) PO SCH (10:17)
[2021-11-08] MEDS: CLOTRIMAZOLE/BETAMET DIPROP TOPICAL CREAM 45 GM TUBE TP SCH ×2 (10:17→21:25)
[2021-11-08] MEDS: hydrOXYzine PAMOATE 25 MG CAPSULE (FP) PO PRN ×2 (10:17→21:26)
[2021-11-08] MEDS: MELATONIN 5 MG TABLETS PO SCH (21:26)
[2021-11-08] MEDS: THIAMINE HCL 100 MG TABLET (FP) PO SCH (21:26)
[2021-11-09] MEDS: PRENATAL VITAMINS W/ FOLIC ACID TABLET (FP) PO SCH (10:25)
[2021-11-09] MEDS: CLOTRIMAZOLE/BETAMET DIPROP TOPICAL CREAM 45 GM TUBE TP SCH ×2 (10:26→21:23)
[2021-11-09] MEDS: THIAMINE HCL 100 MG TABLET (FP) PO SCH (21:23)
[2021-11-09] MEDS: MELATONIN 5 MG TABLETS PO SCH (21:23)
[2021-11-09] MEDS: hydrOXYzine PAMOATE 25 MG CAPSULE (FP) PO PRN (21:25)
[2021-11-10] MEDS: PRENATAL VITAMINS W/ FOLIC ACID TABLET (FP) PO SCH (10:16)
[2021-11-10] MEDS: CLOTRIMAZOLE/BETAMET DIPROP TOPICAL CREAM 45 GM TUBE TP SCH ×2 (10:16→21:35)
[2021-11-10] MEDS: MELATONIN 5 MG TABLETS PO SCH (21:35)
[2021-11-10] MEDS: BACITRACIN 0.9 GM PACKET TP SCH (21:35)
[2021-11-10] MEDS: THIAMINE HCL 100 MG TABLET (FP) PO SCH (21:36)
[2021-11-10] MEDS: VITAMINS A AND D TOPICAL OINTMENT 60 GM TUBE TP SCH (21:37)
[2021-11-11] MEDS: VITAMINS A AND D TOPICAL OINTMENT 60 GM TUBE TP SCH ×2 (10:22→21:23)
[2021-11-11] MEDS: PRENATAL VITAMINS W/ FOLIC ACID TABLET (FP) PO SCH (10:22)
[2021-11-11] MEDS: BACITRACIN 0.9 GM PACKET TP SCH ×2 (10:22→21:21)
[2021-11-11] MEDS: CLOTRIMAZOLE/BETAMET DIPROP TOPICAL CREAM 45 GM TUBE TP SCH ×2 (10:23→21:23)
[2021-11-11] MEDS: MELATONIN 5 MG TABLETS PO SCH (21:21)
[2021-11-11] MEDS: THIAMINE HCL 100 MG TABLET (FP) PO SCH (21:21)
[2021-11-12] MEDS: PRENATAL VITAMINS W/ FOLIC ACID TABLET (FP) PO SCH (10:01)
[2021-11-12] MEDS: CLOTRIMAZOLE/BETAMET DIPROP TOPICAL CREAM 45 GM TUBE TP SCH ×2 (10:01→21:45)
[2021-11-12] MEDS: BACITRACIN 0.9 GM PACKET TP SCH ×2 (10:01→21:45)
[2021-11-12] MEDS: VITAMINS A AND D TOPICAL OINTMENT 60 GM TUBE TP SCH ×2 (10:02→21:46)
[2021-11-12] MEDS: hydrOXYzine PAMOATE 50 MG CAPSULE (FP) PO PRN (13:31)
[2021-11-12] MEDS: MELATONIN 5 MG TABLETS PO SCH (21:45)
[2021-11-12] MEDS: THIAMINE HCL 100 MG TABLET (FP) PO SCH (21:46)
[2021-11-13] MEDS: PRENATAL VITAMINS W/ FOLIC ACID TABLET (FP) PO SCH (10:19)
[2021-11-13] MEDS: BACITRACIN 0.9 GM PACKET TP SCH ×2 (10:19→21:25)
[2021-11-13] MEDS: CLOTRIMAZOLE/BETAMET DIPROP TOPICAL CREAM 45 GM TUBE TP SCH ×2 (10:21→21:27)
[2021-11-13] MEDS: VITAMINS A AND D TOPICAL OINTMENT 60 GM TUBE TP SCH ×2 (10:22→22:06)
[2021-11-13] MEDS: MELATONIN 5 MG TABLETS PO SCH (21:26)
[2021-11-13] MEDS: THIAMINE HCL 100 MG TABLET (FP) PO SCH (21:26)
[2021-11-14] MEDS: BACITRACIN 0.9 GM PACKET TP SCH ×2 (10:32→22:52)
[2021-11-14] MEDS: PRENATAL VITAMINS W/ FOLIC ACID TABLET (FP) PO SCH (10:32)
[2021-11-14] MEDS: VITAMINS A AND D TOPICAL OINTMENT 60 GM TUBE TP SCH ×2 (10:33→21:38)
[2021-11-14] MEDS: CLOTRIMAZOLE/BETAMET DIPROP TOPICAL CREAM 45 GM TUBE TP SCH ×2 (13:03→22:52)
[2021-11-14] MEDS: THIAMINE HCL 100 MG TABLET (FP) PO SCH (21:37)
[2021-11-14] MEDS: MELATONIN 5 MG TABLETS PO SCH (21:37)
[2021-11-15] MEDS: VITAMINS A AND D TOPICAL OINTMENT 60 GM TUBE TP SCH ×2 (10:22→21:33)
[2021-11-15] MEDS: CLOTRIMAZOLE/BETAMET DIPROP TOPICAL CREAM 45 GM TUBE TP SCH ×2 (10:22→21:31)
[2021-11-15] MEDS: BACITRACIN 0.9 GM PACKET TP SCH ×2 (10:22→21:33)
[2021-11-15] MEDS: PRENATAL VITAMINS W/ FOLIC ACID TABLET (FP) PO SCH (10:22)
[2021-11-15] MEDS: hydrOXYzine PAMOATE 50 MG CAPSULE (FP) PO PRN (10:23)
[2021-11-15] MEDS: MELATONIN 5 MG TABLETS PO SCH (21:32)
[2021-11-15] MEDS: THIAMINE HCL 100 MG TABLET (FP) PO SCH (21:32)
[2021-11-16] MEDS: VITAMINS A AND D TOPICAL OINTMENT 60 GM TUBE TP SCH ×2 (10:12→21:37)
[2021-11-16] MEDS: PRENATAL VITAMINS W/ FOLIC ACID TABLET (FP) PO SCH (10:12)
[2021-11-16] MEDS: CLOTRIMAZOLE/BETAMET DIPROP TOPICAL CREAM 45 GM TUBE TP SCH ×2 (10:13→21:37)
[2021-11-16] MEDS: BACITRACIN 0.9 GM PACKET TP SCH ×2 (10:13→21:37)
[2021-11-16] MEDS: THIAMINE HCL 100 MG TABLET (FP) PO SCH (21:37)
[2021-11-16] MEDS: MELATONIN 5 MG TABLETS PO SCH (21:37)
[2021-11-16] MEDS: hydrOXYzine PAMOATE 50 MG CAPSULE (FP) PO PRN (21:37)
[2021-11-17] MEDS: BACITRACIN 0.9 GM PACKET TP SCH ×2 (10:15→21:29)
[2021-11-17] MEDS: VITAMINS A AND D TOPICAL OINTMENT 60 GM TUBE TP SCH ×2 (10:15→21:30)
[2021-11-17] MEDS: PRENATAL VITAMINS W/ FOLIC ACID TABLET (FP) PO SCH (10:15)
[2021-11-17] MEDS: CLOTRIMAZOLE/BETAMET DIPROP TOPICAL CREAM 45 GM TUBE TP SCH ×2 (10:15→21:29)
[2021-11-17] MEDS: THIAMINE HCL 100 MG TABLET (FP) PO SCH (21:29)
[2021-11-17] MEDS: MELATONIN 5 MG TABLETS PO SCH (21:29)
[2021-11-18] MEDS: BACITRACIN 0.9 GM PACKET TP SCH ×2 (10:00→22:10)
[2021-11-18] MEDS: PRENATAL VITAMINS W/ FOLIC ACID TABLET (FP) PO SCH (10:00)
[2021-11-18] MEDS: VITAMINS A AND D TOPICAL OINTMENT 60 GM TUBE TP SCH ×2 (10:01→22:11)
[2021-11-18] MEDS: CLOTRIMAZOLE/BETAMET DIPROP TOPICAL CREAM 45 GM TUBE TP SCH ×2 (10:01→22:10)
[2021-11-18] MEDS: IBUPROFEN 400 MG TABLET (FP) PO PRN (17:38)
[2021-11-18] MEDS: MELATONIN 5 MG TABLETS PO SCH (22:11)
[2021-11-18] MEDS: THIAMINE HCL 100 MG TABLET (FP) PO SCH (22:11)
[2021-11-19 07:00] VITALS: BP 127/77; PULSE 89; TEMP 97.5
[2021-11-19] MEDS: CLOTRIMAZOLE/BETAMET DIPROP TOPICAL CREAM 45 GM TUBE TP SCH (09:57)
[2021-11-19] MEDS: PRENATAL VITAMINS W/ FOLIC ACID TABLET (FP) PO SCH (09:57)
[2021-11-19] MEDS: BACITRACIN 0.9 GM PACKET TP SCH (09:58)
[2021-11-19] MEDS: VITAMINS A AND D TOPICAL OINTMENT 60 GM TUBE TP SCH (09:59)
[2021-11-19] MEDS: hydrOXYzine PAMOATE 50 MG CAPSULE (FP) PO PRN (11:02)
== END 2021-11-19 13:45 | disposition home or self-care (01) | DRG 772 ==
LOC: YASAS 15:23 → Y5N 15:24
PROVIDERS: ADMIT Allergy & Immunology; ATTEND Allergy & Immunology
PROC: HZ42ZZZ Group Counseling for Substance Abuse Treatment, Cognitive-Behavioral (ICD-10-PCS; principal; 2021-10-25)
DX: F10.20 Alcohol dependence, uncomplicated (principal); F10.282 Alcohol dependence with alcohol-induced sleep disorder; F10.280 Alcohol dependence with alcohol-induced anxiety disorder; I10 Essential (primary) hypertension; Z86.69 Personal history of other diseases of the nervous system and sense organs; Z62.810 Personal history of physical and sexual abuse in childhood; Z56.0 Unemployment, unspecified; Z59.00 Homelessness unspecified
CPT/HCPCS: C9803-CS; U0003; U0005